=== PATIENT | male | born 1985 | race African-American/Black ===

== ENCOUNTER 2018-04-17 19:16 | Inpatient (IN) | payer BC, OTHER ==
[2018-04-17] MEDS ORDERED: SODIUM CHLORIDE 0.9% 2,000 ML IV STA (19:40)
[2018-04-17] MEDS ORDERED: FAMOTIDINE 20 MG/2 ML VIAL IV STA (19:40)
--- NOTE | 2018-04-17 19:42 | ED ---
General Adult HPI - General Chief complaint: Dizziness Stated complaint: dehydration/low BP Time Seen by Provider: 04/17/18 19:36 Source: patient, RN notes reviewed, old records reviewed (From [facility]) Mode of arrival: ambulatory Limitations: no limitations - History of Present Illness Initial comments: Patient is a pleasant 32-year-old male presenting to the emergency department with concerns for dehydration. Patient states symptoms started approximately a day and a half ago. Patient has had nausea with multiple episodes of vomiting. Patient has also had some episodes of diarrhea however not as much. No abdominal pain. Patient did go to urgent care and received an injection of Zofran. Nausea has improved. Patient was told his blood pressure was low and advised to come to the emergency department. Patient does also have some associated lightheadedness, more so with upright position. - Related Data Home Medications Medication Instructions Recorded Confirmed Beclomethasone Dipropionate [Qvar 1 puff INHALATION RT-BID PRN 04/17/18 04/17/18 80 mcg] Dulaglutide [Trulicity] 0.75 mg SQ SALAZAR 04/17/18 04/17/18 Lisinopril-Hctz 20-25 mg 1 tab PO DAILY 04/17/18 04/17/18 [Zestoretic 20-25] Simvastatin [Zocor] 20 mg PO HS 04/17/18 04/17/18 metFORMIN HCL 1,000 mg PO BID 04/17/18 04/17/18 sitaGLIPtin [Januvia] 100 mg PO DAILY 04/17/18 04/17/18 Allergies Allergy/AdvReac Type Severity Reaction Status Date / Time No Known Allergies Allergy Verified 04/17/18 19:55 Review of Systems ROS Statement: Those systems with pertinent positive or pertinent negative responses have been documented in the HPI. ROS Other: All systems not noted in ROS Statement are negative. Constitutional: Denies: fever Eyes: Denies: eye pain ENT: Denies: ear pain Respiratory: Denies: cough Cardiovascular: Denies: chest pain Endocrine: Denies: fatigue Gastrointestinal: Reports: nausea, vomiting, diarrhea. Denies: abdominal pain Genitourinary: Denies: dysuria Musculoskeletal: Denies: back pain Skin: Denies: rash Neurological: Denies: weakness, confusion Past Medical History Past Medical History: Asthma, Diabetes Mellitus, Hypertension History of Any Multi-Drug Resistant Organisms: None Reported Past Surgical History: No Surgical Hx Reported Past Psychological History: No Psychological Hx Reported Smoking Status: Never smoker Past Alcohol Use History: Occasional Past Drug Use History: None Reported General Exam Limitations: no limitations General appearance: alert, in no apparent distress Head exam: Present: atraumatic Eye exam: Present: normal appearance, PERRL ENT exam: Present: normal oropharynx Neck exam: Present: normal inspection Respiratory exam: Present: normal lung sounds bilaterally Cardiovascular Exam: Present: regular rate, normal rhythm GI/Abdominal exam: Present: soft. Absent: tenderness Extremities exam: Present: normal inspection. Absent: pedal edema, calf tenderness Neurological exam: Present: alert. Absent: motor sensory deficit Psychiatric exam: Present: normal affect, normal mood Skin exam: Present: normal color Course Vital Signs 04/17/18 04/17/18 19:31 20:32 Temperature 97.4 F L Pulse Rate 84 80 Respiratory 18 18 Rate Blood Pressure 74/46 105/54 O2 Sat by Pulse 100 100 Oximetry EKG Findings - EKG Comments: EKG Findings:: Normal sinus rhythm 81. RI 148. QRS 100. QT 332. QTC 385. Right axis. Normal QRS. No acute ST change. Medical Decision Making - Medical Decision Making Patient reevaluated and resting comfortably in bed. Blood pressure has increased to 105 systolic. Patient updated on results and plan and concerns. Case was discussed in detail with Dr. saab, who will admit for Dr. Zamora. He does request ICU admission. Case also discussed with Dr. Man, who will consult. He does request Cagle catheter. Second IV line will be placed. Additional IV fluid bolus has been provided along with bicarb and calcium. - Lab Data Result diagrams: 04/17/18 19:50 04/17/18 19:50 Lab Results 04/17/18 04/17/18 Range/Units 19:50 19:50 WBC 12.4 H (3.8-10.6) k/uL RBC 5.00 (4.30-5.90) m/uL Hgb 13.2 (13.0-17.5) gm/dL Hct 43.3 (39.0-53.0) % MCV 86.4 (80.0-100.0) fL MCH 26.3 (25.0-35.0) pg MCHC 30.4 L (31.0-37.0) g/dL RDW 13.7 (11.5-15.5) % Plt Count 293 (150-450) k/uL Neutrophils % 72 % Lymphocytes % 17 % Monocytes % 7 % Eosinophils % 2 % Basophils % 0 % Neutrophils # 8.9 H (1.3-7.7) k/uL Lymphocytes # 2.1 (1.0-4.8) k/uL Monocytes # 0.8 (0-1.0) k/uL Eosinophils # 0.3 (0-0.7) k/uL Basophils # 0.0 (0-0.2) k/uL Sodium 138 (137-145) mmol/L Potassium 7.2 H* (3.5-5.1) mmol/L Chloride 103 (98-107) mmol/L Carbon Dioxide 19 L (22-30) mmol/L Anion Gap 16 mmol/L BUN 88 H* (9-20) mg/dL Creatinine 12.40 H* (0.66-1.25) mg/dL Est GFR (CKD-EPI)AfAm 5 (>60 ml/min/1.73 sqM) Est GFR (CKD-EPI)NonAf 5 (>60 ml/min/1.73 sqM) Glucose 117 H (74-99) mg/dL Calcium 9.8 (8.4-10.2) mg/dL Total Bilirubin 0.6 (0.2-1.3) mg/dL AST 41 (17-59) U/L ALT 25 (21-72) U/L Alkaline Phosphatase 80 (38-126) U/L Total Protein 8.8 H (6.3-8.2) g/dL Albumin 5.0 (3.5-5.0) g/dL Amylase 227 H (30-110) U/L Lipase 228 (23-300) U/L - Radiology Data Interpreted by me: Abdominal x-ray shows no acute abnormality. Chest x-ray showing no acute abnormality. Radiologist interpretation still pending. Critical Care Time Critical Care Time: Yes Total Critical Care Time: 33 Disposition Clinical Impression: Acute renal failure (ARF), Hyperkalemia Disposition: ADMITTED IP TO THIS [facility] Condition: Serious Is patient prescribed a controlled substance at d/c from ED?: No Referrals: Marcial Zamora DO [Primary Care Provider] - 1-2 days Decision Time: 21:03
[2018-04-17 20:02] LABS: Basophils % (A) 0 %; Eosinophils # (A) 0.3 k/uL (0-0.7); Eosinophils % (A) 2 %; HCT 43.3 % (39.0-53.0); HGB 13.2 gm/dL (13.0-17.5); Lymphocytes # (A) 2.1 k/uL (1.0-4.8); Lymphocytes % (A) 17 %; MCH 26.3 pg (25.0-35.0); MCHC 30.4 g/dL (31.0-37.0); MCV 86.4 fL (80.0-100.0); Mean Platelet Volume 7.4; Monocytes # (A) 0.8 k/uL (0-1.0); Monocytes % (A) 7 %; Neutrophils # (A) 8.9 k/uL (1.3-7.7); Neutrophils % (A) 72 %; Platelet Count 293 k/uL (150-450); RDW 13.7 % (11.5-15.5); WBC 12.4 k/uL (3.8-10.6)
[2018-04-17 20:15] LABS: Calcium 9.8 mg/dL (8.4-10.2); Total Bilirubin 0.6 mg/dL (0.2-1.3); Total Protein 8.8 g/dL (6.3-8.2)
[2018-04-17 20:21] LABS: Potassium 7.2 mmol/L (3.5-5.1)
[2018-04-17] MEDS ORDERED: CALCIUM CHLORIDE 1,000 MG in SODIUM CHLORIDE 0.9% 100 ML IVPB STA (20:27)
[2018-04-17] MEDS ORDERED: SODIUM BICARB 8.4% 50 ML SYR (1 MEQ/ML) IV ONE (20:27)
[2018-04-17] MEDS ORDERED: SODIUM CHLORIDE 0.9% 1,000 ML IV STA (20:47)
[2018-04-17] MEDS ORDERED: NALOXONE 0.4 MG/ML 1 ML VIAL IV PRN (21:04)
[2018-04-17] MEDS: SODIUM CHLORIDE 0.9% 1,000 ML IV SCH (21:20)
--- NOTE | 2018-04-17 21:32 | XR ---
EXAMINATION TYPE: XR KUB 2 views DATE OF EXAM: 04/17/2018 COMPARISON: NONE HISTORY: Nausea and vomiting and syncope with pain TECHNIQUE: 2 upright views FINDINGS: The visualized lower lungs and pleural spaces are negative. No pneumoperitoneum or pneumatosis. Bowel gas pattern is normal. No acute skeletal or soft tissue findings. IMPRESSION: NEGATIVE EXAMINATION.
--- NOTE | 2018-04-17 21:33 | XR ---
EXAMINATION: XR chest 2V DATE AND TIME: 04/17/2018 8:19 PM ORDERING PROVIDER: John White DO CLINICAL INDICATION: pain TECHNIQUE: PA and lateral COMPARISON: None. DESCRIPTION: The lungs are clear. The pleural spaces are negative. The cardiac silhouette is not enlarged. The mediastinal and pleural silhouettes are unremarkable. The skeletal structures are intact without focal findings. The soft tissues are unremarkable. IMPRESSION: NO ACUTE PROCESS.
[2018-04-17] MEDS ORDERED: ONDANSETRON 4 MG/2 ML VIAL IVP PRN (21:34)
[2018-04-17 22:38] LABS: Glucose,Whole Blood 71 mg/dL (75-99)
[2018-04-17 23:17] LABS: Calcium 8.9 mg/dL (8.4-10.2)
[2018-04-17 23:22] LABS: Potassium 6.6 mmol/L (3.5-5.1)
[2018-04-17 23:27] VITALS: BMI 30.2
[2018-04-17 23:46] LABS: Glucose,Whole Blood 52 mg/dL (75-99)
[2018-04-17] MEDS ORDERED: CALCIUM CHLORIDE 100 MG/ML 10 ML SYRINGE IVP STA (23:57)
[2018-04-17] MEDS ORDERED: INSULIN REGULAR 100 UNIT/ML VIAL IV ONE (23:57)
[2018-04-17] MEDS ORDERED: DEXTROSE 50%-WATER 50 ML SYRINGE IVP STA (23:57)
[2018-04-18 00:25] LABS: Glucose,Whole Blood 60 mg/dL (75-99)
[2018-04-18 00:55] LABS: Glucose,Whole Blood 134 mg/dL (75-99)
[2018-04-18 01:34] LABS: Glucose,Whole Blood 130 mg/dL (75-99)
[2018-04-18] MEDS ORDERED: SODIUM CHLORIDE 0.9% 500 ML IV ONE (02:13)
[2018-04-18 03:26] LABS: Basophils % (A) 0 %; Eosinophils # (A) 0.2 k/uL (0-0.7); Eosinophils % (A) 2 %; HCT 30.7 % (39.0-53.0); Hypochromasia Slight; Lymphocytes # (A) 1.8 k/uL (1.0-4.8); Lymphocytes % (A) 19 %; MCH 26.9 pg (25.0-35.0); MCHC 30.8 g/dL (31.0-37.0); MCV 87.5 fL (80.0-100.0); Mean Platelet Volume 7.9; Monocytes # (A) 0.9 k/uL (0-1.0); Monocytes % (A) 9 %; Neutrophils # (A) 6.4 k/uL (1.3-7.7); Neutrophils % (A) 67 %; Platelet Count 208 k/uL (150-450); RBC 3.51 m/uL (4.30-5.90); RDW 13.7 % (11.5-15.5); WBC 9.5 k/uL (3.8-10.6)
[2018-04-18 03:37] LABS: HGB 9.5 gm/dL (13.0-17.5)
[2018-04-18 03:54] LABS: Albumin 3.1 g/dL (3.5-5.0); Calcium 9.5 mg/dL (8.4-10.2); Magnesium 2.3 mg/dL (1.6-2.3); Phosphorus 5.3 mg/dL (2.5-4.5); Potassium 5.4 mmol/L (3.5-5.1); Total Bilirubin 0.2 mg/dL (0.2-1.3); Total Protein 5.5 g/dL (6.3-8.2)
[2018-04-18 04:47] LABS: Glucose,Whole Blood 102 mg/dL (75-99)
[2018-04-18] MEDS: SODIUM CHLORIDE 0.9% 1,000 ML IV SCH ×5 (06:05→22:57)
[2018-04-18 06:34] LABS: Glucose,Whole Blood 93 mg/dL (75-99)
--- NOTE | 2018-04-18 09:56 | P.CNPUL ---
<Bisi Bedolla M - Last Filed: 04/18/18 09:55> History of Present Illness Consult date: 04/18/18 Requesting physician: Teodoro Vega Reason for consult: other Chief complaint: Acute kidney injury, hyperkalemia, hypotension, History of present illness: Mr. Bullock is a 32-year-old -[place] male patient of Dr. Zamora, who presented to the emergency department on 04/17/2018 at 1940 with complaints of lightheadedness, vomiting, diarrhea, weakness, fatigue. Patient went to the [place] with some friends on Saturday04/13/2018, and he had several alcoholic drinks, but denies being overtly intoxicated. Day on Saturday on 2017 patient felt lightheaded, and he saw bright lights. She did a lot of walking that day in the hot weather, and was perspiring quite a bit. He noticed his urine output was diminished. 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 By that time she was feeling worse, more fatigued, lightheaded, and started throwing up violently, in addition to 2 or 3 episodes of watery diarrhea. One other person in the group had the stomach upset, but no nausea vomiting or diarrhea. Patient went to the urgent care clinic, and was given some Zofran, and subsequently directed to the emergency department for further evaluation and treatment. Medical history is positive for diabetes mellitus type 2, patient was diagnosed at age 15, and his current medications for diabetes include Januvia, metformin and Trulicity. Other history includes asthma, patient is on Proair, usually prior to exercise, history of hypertension on Zestoretic. Lab work in the emergency department revealed WBC of 12.4, hemoglobin of 13.2, potassium was 6.6, BUN was 85, creatinine was 12.4, CO2 17, chloride was 110, amylase was 227, and lipase was 228. Negative chest x-ray, abdominal x-ray was negative. EKG showed normal sinus rhythm. Patient was hypotensive with a blood pressure 74/46, he was given a total of 3,5 L IV fluid boluses of 0.9 normal saline, his hyperkalemia and metabolic acidosis was treated with 1 amp of sodium bicarb, regular insulin, 50% dextrose, and calcium chloride, and on today's labs his potassium is 5.4, chloride is 111, CO2 is 15, BUN 79, and creatinine is 11.1. Nephrology been consulted, patient's blood pressure has improved, currently at 101/46, patient has been afebrile, room air pulse ox is 97%. No further episodes of vomiting, patient is actually tolerating a consistent carb diet, no further diarrhea, he is awake alert, and his mentation is appropriate. Denies any abdominal pain, lung sounds are clear, denies any distress. Review of Systems All systems: negative Constitutional: Denies chills, Denies fever Eyes: denies blurred vision, denies pain Ears, nose, mouth and throat: Denies headache, Denies sore throat Cardiovascular: Denies chest pain, Denies shortness of breath Respiratory: Denies cough Gastrointestinal: Reports nausea, Reports vomiting, Denies abdominal pain, Denies diarrhea Musculoskeletal: Denies myalgias Integumentary: Denies pruritus, Denies rash Neurological: Reports weakness, Denies numbness Psychiatric: Denies anxiety, Denies depression Endocrine: Denies fatigue, Denies weight change Past Medical History Past Medical History: Asthma, Diabetes Mellitus, Hypertension History of Any Multi-Drug Resistant Organisms: None Reported Past Surgical History: No Surgical Hx Reported Additional Past Surgical History / Comment(s): Cyst removed from neck when was child. Past Psychological History: No Psychological Hx Reported Smoking Status: Never smoker Past Alcohol Use History: Occasional Past Drug Use History: None Reported - Past Family History Father Family Medical History: Diabetes Mellitus, Dialysis, Renal Disease Mother Family Medical History: Diabetes Mellitus, Dialysis, Renal Disease Medications and Allergies Home Medications Medication Instructions Recorded Confirmed Type Beclomethasone Dipropionate [Qvar 1 puff INHALATION RT-BID PRN 04/17/18 History 80 mcg] Dulaglutide [Trulicity] 0.75 mg SQ SALAZAR 04/17/18 04/17/18 History Lisinopril-Hctz 20-25 mg 1 tab PO DAILY 04/17/18 04/17/18 History [Zestoretic 20-25] Simvastatin [Zocor] 20 mg PO HS 04/17/18 04/17/18 History metFORMIN HCL 1,000 mg PO BID 04/17/18 04/17/18 History sitaGLIPtin [Januvia] 100 mg PO DAILY 04/17/18 04/17/18 History Allergies Allergy/AdvReac Type Severity Reaction Status Date / Time No Known Allergies Allergy Verified 04/17/18 19:55 Physical Exam Vitals: Vital Signs Temp Pulse Resp BP Pulse Ox 04/18/18 08:00 98.2 F 77 19 101/46 97 04/18/18 07:00 86 14 92/38 98 04/18/18 06:00 89 18 92/38 98 04/18/18 05:00 95 34 H 104/51 100 04/18/18 04:00 98.4 F 85 19 85/44 98 04/18/18 03:30 88 19 84/45 99 04/18/18 03:00 90 19 81/43 99 04/18/18 02:30 94 19 82/41 99 04/18/18 02:00 97 20 88/42 100 04/18/18 01:30 97 20 103/46 99 04/18/18 01:00 98 22 95/48 96 04/18/18 00:30 107 H 26 H 115/65 94 L 04/18/18 00:00 98.1 F 99 28 H 107/54 99 04/17/18 23:30 98 25 H 104/51 99 04/17/18 23:00 93 20 124/49 100 04/17/18 22:40 98.0 F 71 15 124/49 100 04/17/18 22:17 97.9 F 04/17/18 21:47 70 18 95/45 100 04/17/18 21:17 63 18 109/46 100 04/17/18 20:50 66 18 112/53 100 04/17/18 20:32 80 18 105/54 100 04/17/18 19:31 97.4 F L 84 18 74/46 100 Intake and Output 04/17/18 04/18/18 04/18/18 22:59 06:59 14:59 Intake Total 1600 400 Output Total 150 150 Balance 1450 250 Intake: IV 1600 400 Sodium Chloride 0.9% 1, 1600 400 000 ml @ 200 mls/hr IV . Q5H [facility] Rx#:[id number] Output: Urine 150 150 Other: # Voids 1 # Bowel Movements 1 Weight 85.1 kg 90.8 kg GENERAL EXAM: Alert, pleasant, 32-year-old -[place] male comfortable in no apparent distress. HEAD: Normocephalic/atraumatic. EYES: Normal reaction of pupils, equal size. Conjunctiva pink, sclera white. NOSE: Clear with pink turbinates. THROAT: No erythema or exudates. NECK: No masses, no JVD, no thyroid enlargement, no adenopathy. CHEST: No chest wall deformity. Symmetrical expansion. LUNGS: Equal air entry with no crackles, wheeze, rhonchi or dullness. CVS: Regular rate and rhythm, normal S1 and S2, no gallops, no murmurs, no rubs ABDOMEN: Soft, nontender. No hepatosplenomegaly, normal bowel sounds, no guarding or rigidity. EXTREMITIES: No clubbing, no edema, no cyanosis, 2+ pulses and upper and lower extremities. MUSCULOSKELETAL: Muscle strength and tone normal. SPINE: No scoliosis or deformity SKIN: No rashes CENTRAL NERVOUS SYSTEM: Alert and oriented -3. No focal deficits, tone is normal in all 4 extremities. PSYCHIATRIC: Alert and oriented -3. Appropriate affect. Intact judgment and insight. Results - Laboratory Findings CBC and BMP: 04/18/18 03:11 04/18/18 03:11 Abnormal lab findings: Abnormal Labs 04/17/18 04/17/18 04/17/18 19:50 19:50 22:36 WBC 12.4 H RBC Hgb Hct MCHC 30.4 L Neutrophils # 8.9 H Potassium 7.2 H* Chloride Carbon Dioxide 19 L BUN 88 H* Creatinine 12.40 H* Glucose 117 H POC Glucose (mg/dL) 71 L Phosphorus AST Total Protein 8.8 H Albumin Amylase 227 H 04/17/18 04/17/18 04/18/18 22:46 23:44 00:23 WBC RBC Hgb Hct MCHC Neutrophils # Potassium 6.6 H* Chloride 110 H Carbon Dioxide 17 L BUN 85 H* Creatinine 11.10 H* Glucose 70 L POC Glucose (mg/dL) 52 L 60 L Phosphorus AST Total Protein Albumin Amylase 04/18/18 04/18/18 04/18/18 00:53 01:32 03:11 WBC RBC 3.51 L Hgb 9.5 L D Hct 30.7 L MCHC 30.8 L Neutrophils # Potassium Chloride Carbon Dioxide BUN Creatinine Glucose POC Glucose (mg/dL) 134 H 130 H Phosphorus AST Total Protein Albumin Amylase 04/18/18 04/18/18 03:11 04:45 WBC RBC Hgb Hct MCHC Neutrophils # Potassium 5.4 H Chloride 111 H Carbon Dioxide 15 L BUN 79 H Creatinine 11.10 H* Glucose POC Glucose (mg/dL) 102 H Phosphorus 5.3 H AST 15 L Total Protein 5.5 L Albumin 3.1 L Amylase - Diagnostic Findings Chest x-ray: report reviewed, image reviewed Additional studies: X-ray of the abdomen, twelve-lead EKG reviewed Assessment and Plan Plan: Assessment: #1. Acute kidney injury, related to significant dehydration and hypovolemia. #2. Hyperkalemia, hyperchloremia, related to the above #3. Hypertension #4. Nausea, vomiting, diarrhea, excessive sweating in hot weather #5. Non-anion gap metabolic acidosis related to acute kidney injury #6. Mild leukocytosis, possibly reactive #7. Diabetes mellitus type II, he is on Januvia, metformin, and Trulicity insulin #8. Exercise-induced asthma, stable #9. Hypertension #10. Lifetime nonsmoker Plan: Patient has received aggressive fluid resuscitation, a total of 3,5 liters of crystalloids, currently his blood pressures have improved, he is alert and oriented 3, no confusion, no delirium. He is tolerating small amounts of food and keeping fluids down, no further vomiting or diarrhea. Nephrology is following. Still remains acidotic on today's labs, we'll continue with IV hydration with 0.9 normal saline at a rate of 200 ML per hour. Serum potassium has improved, and is down to 5.4, continue monitoring EKG pattern, continue monitoring hemodynamic status, urine output. His asthma is stable, with no sign of current exacerbation. I performed a history & physical examination of the patient and discussed their management with my nurse practitioner, Bisi Bedolla. I reviewed the nurse practitioner's note and agree with the documented findings and plan of care. Lung sounds are clear. The findings and the impression was discussed with the patient. I attest to the documentation by the nurse practitioner. <Priyanka Man - Last Filed: 04/18/18 13:52> Physical Exam Vitals: Vital Signs Temp Pulse Resp BP Pulse Ox 04/18/18 13:00 78 20 98/49 100 04/18/18 12:00 76 17 91/50 100 04/18/18 11:00 82 18 98/46 100 04/18/18 10:00 80 16 96/48 98 04/18/18 09:00 90 28 H 113/50 97 04/18/18 08:00 98.2 F 77 19 101/46 97 04/18/18 07:00 86 14 92/38 98 04/18/18 06:00 89 18 92/38 98 04/18/18 05:00 95 34 H 104/51 100 04/18/18 04:00 98.4 F 85 19 85/44 98 04/18/18 03:30 88 19 84/45 99 04/18/18 03:00 90 19 81/43 99 04/18/18 02:30 94 19 82/41 99 04/18/18 02:00 97 20 88/42 100 04/18/18 01:30 97 20 103/46 99 04/18/18 01:00 98 22 95/48 96 04/18/18 00:30 107 H 26 H 115/65 94 L 04/18/18 00:00 98.1 F 99 28 H 107/54 99 04/17/18 23:30 98 25 H 104/51 99 04/17/18 23:00 93 20 124/49 100 04/17/18 22:40 98.0 F 71 15 124/49 100 04/17/18 22:17 97.9 F 04/17/18 21:47 70 18 95/45 100 04/17/18 21:17 63 18 109/46 100 04/17/18 20:50 66 18 112/53 100 04/17/18 20:32 80 18 105/54 100 04/17/18 19:31 97.4 F L 84 18 74/46 100 Intake and Output 04/17/18 04/18/18 04/18/18 22:59 06:59 14:59 Intake Total 1600 1400 Output Total 150 820 Balance 1450 580 Intake: IV 1600 1400 Sodium Chloride 0.9% 1, 1600 1400 000 ml @ 200 mls/hr IV . Q5H [facility] Rx#:[id number] Output: Urine 150 820 Other: # Voids 1 # Bowel Movements 1 Weight 85.1 kg 90.8 kg 90.8 kg Results - Laboratory Findings CBC and BMP: 04/18/18 03:11 04/18/18 03:11 Abnormal lab findings: Abnormal Labs 07/12/18 07/12/18 07/12/18 19:50 19:50 22:36 WBC 12.4 H RBC Hgb Hct MCHC 30.4 L Neutrophils # 8.9 H Potassium 7.2 H* Chloride Carbon Dioxide 19 L BUN 88 H* Creatinine 12.40 H* Glucose 117 H POC Glucose (mg/dL) 71 L Phosphorus AST Total Protein 8.8 H Albumin Amylase 227 H Urine Protein Urine Blood Urine Bacteria Hyaline Casts Urine Mucus 04/17/18 04/17/18 04/18/18 22:46 23:44 00:23 WBC RBC Hgb Hct MCHC Neutrophils # Potassium 6.6 H* Chloride 110 H Carbon Dioxide 17 L BUN 85 H* Creatinine 11.10 H* Glucose 70 L POC Glucose (mg/dL) 52 L 60 L Phosphorus AST Total Protein Albumin Amylase Urine Protein Urine Blood Urine Bacteria Hyaline Casts Urine Mucus 04/18/18 04/18/18 04/18/18 00:53 01:32 03:11 WBC RBC 3.51 L Hgb 9.5 L D Hct 30.7 L MCHC 30.8 L Neutrophils # Potassium Chloride Carbon Dioxide BUN Creatinine Glucose POC Glucose (mg/dL) 134 H 130 H Phosphorus AST Total Protein Albumin Amylase Urine Protein Urine Blood Urine Bacteria Hyaline Casts Urine Mucus 04/18/18 04/18/18 04/18/18 03:11 04:45 11:05 WBC RBC Hgb Hct MCHC Neutrophils # Potassium 5.4 H Chloride 111 H Carbon Dioxide 15 L BUN 79 H Creatinine 11.10 H* Glucose POC Glucose (mg/dL) 102 H Phosphorus 5.3 H AST 15 L Total Protein 5.5 L Albumin 3.1 L Amylase Urine Protein 1+ H Urine Blood Moderate H Urine Bacteria Rare H Hyaline Casts 12 H Urine Mucus Rare H Assessment and Plan Plan: This is a joint evaluation that was done along with the nurse practitioner. We will order an ultrasound the kidneys. We'll order a urine analysis. Continue fluid resuscitation. Repeat electrolytes. We'll continue to follow.
[2018-04-18] MEDS: SODIUM BICARBONATE TAB 650 MG TAB PO SCH ×2 (10:55→21:40)
[2018-04-18 11:22] LABS: Appearance,Urine Clear (Clear); Bacteria,Urine Rare /hpf; Bilirubin,Urine Negative (Negative); Blood,Urine Moderate (Negative); Color,Urine Light Yellow; Glucose,Urine (UA) Negative (Negative); Hyaline Casts,Urine 12 /lpf (0-2); Ketones,Urine Negative (Negative); Leukocyte Esterase,Urine Negative (Negative); Mucus,Urine Rare /hpf; Nitrite,Urine Negative (Negative); PH, Urine 5.5 (5.0-8.0); Protein,Urine 1+ (Negative); RBC,Urine <1 /hpf (0-5); Specific Gravity,Urine 1.009 (1.001-1.035); Squamous Epithelial Cell,Urine 1 /hpf (0-4); Urobilinogen,Urine <2.0 mg/dL (<2.0); WBC,Urine 1 /hpf (0-5)
[2018-04-18 12:11] LABS: Glucose,Whole Blood 87 mg/dL (75-99)
[2018-04-18] MEDS: INSULIN ASPART 100 UNIT/ML 1 ML 10 ML VIAL SQ SCH ×3 (13:02→21:37)
--- NOTE | 2018-04-18 13:07 | US ---
EXAMINATION TYPE: US kidneys/renal and bladder DATE OF EXAM: 04/18/2018 COMPARISON: NONE CLINICAL HISTORY: acute renal failure. acute renal failure EXAM MEASUREMENTS: Right Kidney: 9.6 x 4.4 x 5.6 cm Left Kidney: 9.8 x 6.3 x 4.4 cm Technical limitations due to overlying bowel content Right Kidney: visualized portions show no evidence of hydronephrosis or mass Left Kidney: visualized portions show no evidence of hydronephrosis or mass Bladder: appears wnl Bilateral Jets seen: yes There is no evidence for hydronephrosis at this point in time. No nephrolithiasis is seen. No bud s are identified. The urinary bladder is anechoic. Bilateral ureteral jets are seen. IMPRESSION: No hydronephrosis or nephrolithiasis. No sonographic sequela of medical renal disease.
--- NOTE | 2018-04-18 13:16 | CONS ---
CONSULTATION REASON FOR CONSULT: Renal failure. HISTORY OF PRESENT ILLNESS: The patient is a 32-year-old male who was admitted to the hospital with complaints of weakness not feeling well. He stated he had been out and working outside. He felt he was dehydrated. He did have some diarrhea. He had some nausea and vomiting. Was not able to keep any food down. He denied use of any nonsteroidal anti-inflammatory agents that he had taken. Patient's creatinine on admission was 12 mg/dL. He states he did have labs done as outpatient for his routine physical maybe 2 months ago and was not notified of any issues with his kidneys. He currently has good urine output. Serum creatinine is at 11. The patient is maintained on IV fluids. His blood pressure was low when he came in with systolic about 92 to 98, but there is a documentation of a systolic of 74 mmHg on initial admission. No history of kidney stones. The patient was on SAI inhibitors prior to admission, which is now on hold. Overall, patient states he is feeling better. PAST MEDICAL HISTORY: Type 2 diabetes, hypertension, asthma. SOCIAL HISTORY: Negative for smoking, drug abuse or alcohol abuse. MEDICATIONS: Medications at home prior to admission included Qvar, Trulicity, Zocor, Zestoretic, Januvia, metformin. ALLERGIES: None. PHYSICAL EXAMINATION: On examination, patient is currently comfortable, awake, alert, oriented x3. He is not in any acute distress. Blood pressure was 96/48, heart rate 80 per minute. He is afebrile. EXAMINATION OF THE HEART: S1, S2. EXAMINATION OF THE LUNGS: Bilateral breath sounds are heard. Abdomen is soft, nontender. Examination of the lower extremities shows no evidence of edema. CHARGER TESTER exam is grossly intact. No asterixis are noted. LABS: Labs show sodium 138, potassium 5.4, chloride 111, CO2 15, BUN 79, serum creatinine 11.1, calcium of 9.5. UA shows 1+ protein, moderate blood, hyaline casts 12. ASSESSMENT: 1. Acute kidney injury, most likely acute tubular necrosis from hypotension, hypovolemia. The patient was on SAI inhibitors as well prior to admission. He is maintained on aggressive IV hydration. Serum creatinine is slightly improved. We will continue with IV fluids and check an ultrasound of the kidneys. We will also obtain previous labs done as outpatient to assess patient's baseline renal function. He did state that his parents were on dialysis about 10 years ago, but they were much older. 2. Severe intravascular volume depletion. Maintained on aggressive IV hydration. 3. Hyperkalemia associated with advanced renal failure with serum potassium at 7.2 on initial admission now at 5.4, status post IV treatment. 4. Metabolic acidosis. Will start oral sodium bicarb and we can add IV bicarb if his acidosis worsens. 5. Type 2 diabetes. 6. History of hypertension. Blood pressure currently on the lower side, off of all antihypertensive medications. PLAN: Aggressive IV hydration. Maintain patient on oral sodium bicarb. Switch IV fluids to IV bicarb if the acidosis is worse. We will check repeat labs later on this afternoon on. Thank you for this consultation. We will continue to follow the patient with you during his hospitalization. JERRY / ABIOLA: [id number] /
[2018-04-18 16:33] LABS: Calcium 8.9 mg/dL (8.4-10.2)
[2018-04-18] MEDS ORDERED: MAGNESIUM HYDROXIDE 2,400 MG/10 ML CUP PO PRN (16:35)
[2018-04-18] MEDS ORDERED: MELATONIN 3 MG TABLET PO PRN (16:35)
[2018-04-18] MEDS ORDERED: LACTULOSE 20 GM/30 ML CUP PO PRN (16:35)
[2018-04-18] MEDS ORDERED: LORazepam 0.5 MG TAB PO PRN (16:35)
[2018-04-18] MEDS ORDERED: CALCIUM CARBONATE 500 MG CHEWABLE PO PRN (16:35)
[2018-04-18] MEDS ORDERED: ACETAMINOPHEN TAB 325 MG TAB PO PRN (16:35)
[2018-04-18 16:38] LABS: Potassium 6.7 mmol/L (3.5-5.1)
[2018-04-18] MEDS: ENOXAPARIN 40 MG/0.4 ML SYRINGE SQ SCH (16:48)
[2018-04-18 17:22] LABS: Glucose,Whole Blood 76 mg/dL (75-99)
[2018-04-18] MEDS ORDERED: SODIUM BICARB 8.4% 50 ML SYR (1 MEQ/ML) IV ONE (17:28)
[2018-04-18] MEDS ORDERED: INSULIN REGULAR 100 UNIT/ML VIAL IV ONE ×2 (17:31→22:23)
--- NOTE | 2018-04-18 17:31 | HP ---
HISTORY AND PHYSICAL DATE OF ADMISSION: 04/17/2018 DATE OF SERVICE: 04/18/2018 PRESENTING COMPLAINT: Weak and tired, nausea, vomiting. HISTORY OF PRESENTING COMPLAINT: This is a very pleasant 32-year-old patient of Dr. Zamora. Chronic stable medical conditions include asthma, diabetes, possible hypertension. For 2 days patient was having increasing nausea, vomiting, diarrhea in large amounts. No abdominal pain. No fever or chills. He felt extremely weak, tired, rundown, dizzy, lightheaded, and presented to the ER. The patient was found to be in severe renal failure with a BUN of 88, creatinine of 12.4, and hyperkalemic at 7.2. Sugars did dip down to 70s and 52. Patient was admitted to the ICU. The patient was given insulin, bicarb, IV fluid boluses and admitted to the intensive care unit. Patient's vomiting has somewhat settled down. Still having some loose stools, but really tired and rundown. REVIEW OF SYSTEMS: CONSTITUTIONAL: Weak, tired, rundown. HEENT: None. RESPIRATORY: Mild wheezing. CARDIOVASCULAR: None. GASTROINTESTINAL: As above. GENITOURINARY: None. MUSCULOSKELETAL: None. DERMATOLOGICAL: None. HEMATOLOGICAL: None. LYMPHATICS: None. PSYCHIATRY: None. NEUROLOGICAL: None. PAST MEDICAL HISTORY: 1. Asthma. 2. Diabetes. 3. Hypertension. PAST SURGICAL HISTORY: Cyst removed from the neck. SOCIAL HISTORY: Does not smoke. Drinks alcohol occasionally. Lives by himself. Works at a long term. FAMILY HISTORY: Diabetes, kidney disease. HOME MEDICATIONS: 1. Januvia 100 mg a day. 2. Zocor 20 mg at bedtime. 3. Trulicity 0.75 mg subcutaneously on Sundays. 4. Qvar 80 one puff b.i.d. 5. Metformin 1000 mg p.o. b.i.d. 6. Zestoretic 20/25 one tablet p.o. daily. ALLERGIES: NONE. PHYSICAL EXAMINATION: Temperature 97.4, pulse 84, respiration 18, blood pressure 74/46, pulse ox 100% on room air. GENERAL APPEARANCE: Average build. Lying in bed, tired-appearing. Skin turgor is low. EYES: Pupils equal. Conjunctivae normal. HEENT: External appearance of nose and ears normal. Oral cavity dry mucous membrane. NECK: JVD not raised. Mass not palpable. RESPIRATORY: Effort normal. LUNGS: Decreased breath sounds. Mild wheezing. CARDIOVASCULAR: First and second sounds normal. No edema. ABDOMEN: Soft, non-tender. Liver and spleen not palpable. LYMPHATIC: No lymph node palpable in neck or axillae. PSYCHIATRY: Alert and oriented x3. Mood and affect normal. INVESTIGATIONS: White count 12.4, hemoglobin 13.2, potassium 7.2, bicarb down to 17, BUN 88, creatinine 12.4. Blood glucose did go to 70 and Accu-Chek was 52. Chest x-ray film interpreted by me is normal. EKG tracing interpreted by me showing normal sinus rhythm and peaked T-waves. Abdominal ultrasound: Kidneys are unremarkable. ASSESSMENT: 1. Acute severe renal failure, likely prerenal, from nausea, vomiting, diarrhea. 2. Diabetes mellitus, type 2, chronically on oral hypoglycemic. 3. Mild intermittent asthma. 4. Acute metabolic acidosis from renal failure. 5. Severe hyperkalemia. 6. Hypoglycemia from poor oral intake. PLAN: The patient has been put on IV fluids, sodium bicarb, put in the ICU. Accu-Cheks are being closely followed. Nephrology was consulted. Renal ultrasound was unremarkable. Care was discussed with the patient. Will hold off any antibiotics, as this could be viral self-limiting as patient has no fever, no abdominal pain. MMODL / IJN: [id number] /
[2018-04-18] MEDS ORDERED: CALCIUM CHLORIDE 100 MG/ML 10 ML SYRINGE IVP STA (17:32)
[2018-04-18] MEDS ORDERED: DEXTROSE 50%-WATER 50 ML SYRINGE IVP STA ×2 (17:34→22:23)
[2018-04-18 18:54] LABS: Hemoglobin A1C 5.8 % (4.0-6.0)
[2018-04-18 20:41] LABS: Urine Alcohol Negative (Negative); Urine Barbiturate Negative (Negative); Urine Cocaine Negative (Negative); Urine Methadone Negative (Negative); Urine Opiates Negative (Negative); Urine Phencyclidine Negative (Negative)
[2018-04-18 20:48] LABS: Glucose,Whole Blood 96 mg/dL (75-99)
[2018-04-18 21:46] LABS: Calcium 9.9 mg/dL (8.4-10.2); Potassium 6.1 mmol/L (3.5-5.1)
[2018-04-18] MEDS ORDERED: SODIUM BICARB 8.4% 50 ML SYR (1 MEQ/ML) IV STA (22:23)
[2018-04-19 00:18] LABS: Glucose,Whole Blood 68 mg/dL (75-99)
[2018-04-19 00:30] LABS: Glucose,Whole Blood 81 mg/dL (75-99)
[2018-04-19] MEDS: SODIUM CHLORIDE 0.9% 1,000 ML IV SCH ×4 (03:00→21:20)
[2018-04-19 03:01] LABS: Glucose,Whole Blood 94 mg/dL (75-99)
[2018-04-19 06:02] LABS: Basophils % (A) 1 %; Eosinophils # (A) 0.3 k/uL (0-0.7); Eosinophils % (A) 4 %; HCT 28.9 % (39.0-53.0); HGB 8.8 gm/dL (13.0-17.5); Hypochromasia Moderate; Lymphocytes # (A) 2.6 k/uL (1.0-4.8); Lymphocytes % (A) 42 %; MCH 27.1 pg (25.0-35.0); MCHC 30.4 g/dL (31.0-37.0); MCV 89.2 fL (80.0-100.0); Mean Platelet Volume 7.6; Monocytes # (A) 0.4 k/uL (0-1.0); Monocytes % (A) 7 %; Neutrophils # (A) 2.7 k/uL (1.3-7.7); Neutrophils % (A) 43 %; Platelet Count 203 k/uL (150-450); RBC 3.24 m/uL (4.30-5.90); RDW 13.6 % (11.5-15.5); WBC 6.3 k/uL (3.8-10.6)
[2018-04-19 06:28] LABS: Calcium 9.1 mg/dL (8.4-10.2); Magnesium 1.8 mg/dL (1.6-2.3); Phosphorus 3.9 mg/dL (2.5-4.5)
[2018-04-19] MEDS ORDERED: DEXTROSE 50%-WATER 50 ML SYRINGE IVP STA (07:04)
[2018-04-19] MEDS ORDERED: INSULIN REGULAR 100 UNIT/ML VIAL IV ONE (07:15)
[2018-04-19] MEDS ORDERED: SODIUM BICARB 8.4% 50 ML SYR (1 MEQ/ML) IV ONE (07:15)
[2018-04-19 07:27] LABS: Glucose,Whole Blood 86 mg/dL (75-99)
[2018-04-19] MEDS: SODIUM BICARB 8.4% 50 ML SYR (1 MEQ/ML) IV ONE (07:34)
[2018-04-19] MEDS: INSULIN ASPART 100 UNIT/ML 1 ML 10 ML VIAL SQ SCH ×4 (07:35→21:05)
[2018-04-19] MEDS ORDERED: MAGNESIUM SULFATE-D5W PMX 1 GM in DEXTROSE/WATER 1 100ML.BAG IVPB ONE (08:00)
[2018-04-19] MEDS: ENOXAPARIN 40 MG/0.4 ML SYRINGE SQ SCH (08:07)
[2018-04-19] MEDS: SODIUM BICARBONATE TAB 650 MG TAB PO SCH ×2 (08:07→21:50)
[2018-04-19 08:45] LABS: Glucose,Whole Blood 224 mg/dL (75-99)
--- NOTE | 2018-04-19 10:57 | P.PN ---
Subjective Patient is seen in follow-up for acute kidney injury. Creatinine was greater than 12 on admission and is down to 4.1 today. Potassium remains elevated. He is nonoliguric. Maintained on normal saline at 200 mL an hour. Oral intake is good. No nausea vomiting or diarrhea. Vital signs are stable. General: The patient appeared well nourished and normally developed. HEENT: Head exam is unremarkable. Neck is without jugular venous distension. LUNGS: Lungs are clear to auscultation and percussion. Breath sounds decreased. HEART: Rate and Rhythm are regular. First and second heart sounds normal. No murmurs, rubs or gallops. ABDOMEN: Abdominal exam reveals normal bowel sounds. Non-tender and non- distended. No evidence of peritonitis. EXTREMITITES: No clubbing, cyanosis, or edema. Objective - Vital Signs Vital signs: Vital Signs Temp 98.5 F 04/19/18 08:00 Pulse 79 04/19/18 10:00 Resp 16 04/19/18 10:00 BP 103/63 04/19/18 10:00 Pulse Ox 99 04/19/18 10:00 Intake & Output 04/18/18 04/19/18 04/19/18 18:59 06:59 18:59 Intake Total 2500 2400 900 Output Total 1620 3275 500 Balance 880 -875 400 Weight 90.8 kg 96.2 kg Intake: IV 2500 2400 900 Calcium Chloride 1,000 mg 100 In Sodium Chloride 0.9% 100 ml @ 100 mls/hr IVPB ONCE STA Rx#:[id number] Magnesium Sulfate-D5w Pmx 100 1 gm In Dextrose/Water 1 100ml.bag @ 100 mls/hr IVPB ONCE ONE Rx#: [id number] Sodium Chloride 0.9% 1, 2400 2400 800 000 ml @ 200 mls/hr IV . Q5H [facility] Rx#:[id number] Output: Urine 1620 3275 500 Other: Voiding Method Urinal Urinal Urinal # Voids 1 - Labs CBC & Chem 7: 04/19/18 05:13 04/19/18 05:13 Labs: Abnormal Lab Results - Last 24 Hours (Table) 04/18/18 04/18/18 04/18/18 Range/Units 11:05 16:05 21:06 RBC (4.30-5.90) m/uL Hgb (13.0-17.5) gm/dL Hct (39.0-53.0) % MCHC (31.0-37.0) g/dL Potassium 6.7 H* 6.1 H (3.5-5.1) mmol/L Chloride 116 H 117 H (98-107) mmol/L Carbon Dioxide 19 L (22-30) mmol/L BUN 70 H 62 H (9-20) mg/dL Creatinine 7.80 H* 6.30 H* (0.66-1.25) mg/dL POC Glucose (mg/dL) (75-99) mg/dL Urine Protein 1+ H (Negative) Urine Blood Moderate H (Negative) Urine Bacteria Rare H (None) /hpf Hyaline Casts 12 H (0-2) /lpf Urine Mucus Rare H (None) /hpf 04/19/18 04/19/18 04/19/18 Range/Units 00:16 05:13 05:13 RBC 3.24 L (4.30-5.90) m/uL Hgb 8.8 L (13.0-17.5) gm/dL Hct 28.9 L (39.0-53.0) % MCHC 30.4 L (31.0-37.0) g/dL Potassium 6.0 H (3.5-5.1) mmol/L Chloride 115 H (98-107) mmol/L Carbon Dioxide 20 L (22-30) mmol/L BUN 51 H (9-20) mg/dL Creatinine 4.10 H (0.66-1.25) mg/dL POC Glucose (mg/dL) 68 L (75-99) mg/dL Urine Protein (Negative) Urine Blood (Negative) Urine Bacteria (None) /hpf Hyaline Casts (0-2) /lpf Urine Mucus (None) /hpf 04/19/18 Range/Units 08:43 RBC (4.30-5.90) m/uL Hgb (13.0-17.5) gm/dL Hct (39.0-53.0) % MCHC (31.0-37.0) g/dL Potassium (3.5-5.1) mmol/L Chloride (98-107) mmol/L Carbon Dioxide (22-30) mmol/L BUN (9-20) mg/dL Creatinine (0.66-1.25) mg/dL POC Glucose (mg/dL) 224 H (75-99) mg/dL Urine Protein (Negative) Urine Blood (Negative) Urine Bacteria (None) /hpf Hyaline Casts (0-2) /lpf Urine Mucus (None) /hpf Microbiology - Last 24 Hours (Table) 04/18/18 11:05 Urine Culture - Preliminary Urine,Clean Catch Assessment and Plan Plan: Assessment: 1. Nonoliguric acute kidney injury mostly prerenal improving with IV hydration. Creatinine was greater than 12 on admission and is down to 4.1 today. 2. Hyperkalemia secondary to acute kidney injury and metabolic acidosis. 3. Anemia. Rule out iron deficiency. 4. Metabolic acidosis secondary to IV fluids and acute kidney injury. 5. Diabetes mellitus. Plan: Decrease rate of normal saline to 125 mL an hour. Maintain low potassium diet. Recheck potassium level in one hour. Maintain oral sodium bicarbonate. Check iron studies.
[2018-04-19 12:02] LABS: Calcium 9.3 mg/dL (8.4-10.2); Potassium 5.4 mmol/L (3.5-5.1)
[2018-04-19 12:22] LABS: Glucose,Whole Blood 55 mg/dL (75-99)
[2018-04-19 12:22] LABS: Glucose,Whole Blood 61 mg/dL (75-99)
[2018-04-19 12:49] LABS: Glucose,Whole Blood 87 mg/dL (75-99)
--- NOTE | 2018-04-19 14:43 | P.PN ---
Subjective Progress Note Date: 04/19/18 Mr. Bullock is a 32-year-old -Green[place] male patient of Dr. Zamora, who presented to the emergency department on 04/17/2018 at 1940 with complaints of lightheadedness, vomiting, diarrhea, weakness, fatigue. Patient went to the [place] with some friends on Saturday04/13/2018, and he had several alcoholic drinks, but denies being overtly intoxicated. Day on Saturday on 2017 patient felt lightheaded, and he saw bright lights. She did a lot of walking that day in the hot weather, and was perspiring quite a bit. He noticed his urine output was diminished. 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 By that time she was feeling worse, more fatigued, lightheaded, and started throwing up violently, in addition to 2 or 3 episodes of watery diarrhea. One other person in the group had the stomach upset, but no nausea vomiting or diarrhea. Patient went to the urgent care clinic, and was given some Zofran, and subsequently directed to the emergency department for further evaluation and treatment. Medical history is positive for diabetes mellitus type 2, patient was diagnosed at age 15, and his current medications for diabetes include Januvia, metformin and Trulicity. Other history includes asthma, patient is on Proair, usually prior to exercise, history of hypertension on Zestoretic. Lab work in the emergency department revealed WBC of 12.4, hemoglobin of 13.2, potassium was 6.6, BUN was 85, creatinine was 12.4, CO2 17, chloride was 110, amylase was 227, and lipase was 228. Negative chest x-ray, abdominal x-ray was negative. EKG showed normal sinus rhythm. Patient was hypotensive with a blood pressure 74/46, he was given a total of 3,5 L IV fluid boluses of 0.9 normal saline, his hyperkalemia and metabolic acidosis was treated with 1 amp of sodium bicarb, regular insulin, 50% dextrose, and calcium chloride, and on today's labs his potassium is 5.4, chloride is 111, CO2 is 15, BUN 79, and creatinine is 11.1. Nephrology been consulted, patient's blood pressure has improved, currently at 101/46, patient has been afebrile, room air pulse ox is 97%. No further episodes of vomiting, patient is actually tolerating a consistent carb diet, no further diarrhea, he is awake alert, and his mentation is appropriate. Denies any abdominal pain, lung sounds are clear, denies any distress. On today's evaluation of 04/19/2018 the patient is looking well and he has no specific complaints. His renal function continues to improve. Ultrasound the kidneys showed no evidence of any hydronephrosis. UA was negative also other than some casts. The patient's creatinine is improving and creatinine is down to 3.2. Potassium level is down to 5.4 did not that overnight the patient had some issues with hyperkalemia and he was given the potassium cocktail to which she responded. He is tolerating his diet. No nausea. No vomiting. No abdominal pain. Is producing adequate amount of urine output. His net fluid balance is +1.4 L 4 yesterday. Otherwise is urinating adequately for now. Nephrology is on the case. The patient on Lovenox for DVT prophylaxis. He is also on normal saline at the rate of 125 mL an hour. Objective - Vital Signs Vital signs: Vital Signs Temp 98.2 F 04/19/18 12:00 Pulse 70 04/19/18 14:00 Resp 10 L 04/19/18 14:00 BP 132/73 04/19/18 14:00 Pulse Ox 98 04/19/18 14:00 Intake & Output 04/18/18 04/19/18 04/19/18 18:59 06:59 18:59 Intake Total 2500 2400 1400 Output Total 1620 3275 1750 Balance 880 -875 -350 Weight 90.8 kg 96.2 kg Intake: IV 2500 2400 1400 Calcium Chloride 1,000 mg 100 In Sodium Chloride 0.9% 100 ml @ 100 mls/hr IVPB ONCE STA Rx#:[id number] Magnesium Sulfate-D5w Pmx 100 1 gm In Dextrose/Water 1 100ml.bag @ 100 mls/hr IVPB ONCE ONE Rx#: [id number] Sodium Chloride 0.9% 1, 2400 2400 1300 000 ml @ 125 mls/hr IV . Q8H [facility] Rx#:[id number] Output: Urine 1620 3275 1750 Other: Voiding Method Urinal Urinal Urinal # Voids 1 - Exam GENERAL EXAM: Alert, pleasant, 32-year-old -Green[place]ic male comfortable in no apparent distress. HEAD: Normocephalic/atraumatic. EYES: Normal reaction of pupils, equal size. Conjunctiva pink, sclera white. NOSE: Clear with pink turbinates. THROAT: No erythema or exudates. NECK: No masses, no JVD, no thyroid enlargement, no adenopathy. CHEST: No chest wall deformity. Symmetrical expansion. LUNGS: Equal air entry with no crackles, wheeze, rhonchi or dullness. CVS: Regular rate and rhythm, normal S1 and S2, no gallops, no murmurs, no rubs ABDOMEN: Soft, nontender. No hepatosplenomegaly, normal bowel sounds, no guarding or rigidity. EXTREMITIES: No clubbing, no edema, no cyanosis, 2+ pulses and upper and lower extremities. MUSCULOSKELETAL: Muscle strength and tone normal. SPINE: No scoliosis or deformity SKIN: No rashes CENTRAL NERVOUS SYSTEM: Alert and oriented -3. No focal deficits, tone is normal in all 4 extremities. PSYCHIATRIC: Alert and oriented -3. Appropriate affect. Intact judgment and insight. - Labs CBC & Chem 7: 04/19/18 05:13 04/19/18 11:18 Labs: Abnormal Lab Results - Last 24 Hours (Table) 04/18/18 04/18/18 04/19/18 Range/Units 16:05 21:06 00:16 RBC (4.30-5.90) m/uL Hgb (13.0-17.5) gm/dL Hct (39.0-53.0) % MCHC (31.0-37.0) g/dL Potassium 6.7 H* 6.1 H (3.5-5.1) mmol/L Chloride 116 H 117 H (98-107) mmol/L Carbon Dioxide 19 L (22-30) mmol/L BUN 70 H 62 H (9-20) mg/dL Creatinine 7.80 H* 6.30 H* (0.66-1.25) mg/dL Glucose (74-99) mg/dL POC Glucose (mg/dL) 68 L (75-99) mg/dL 04/19/18 04/19/18 04/19/18 Range/Units 05:13 05:13 08:43 RBC 3.24 L (4.30-5.90) m/uL Hgb 8.8 L (13.0-17.5) gm/dL Hct 28.9 L (39.0-53.0) % MCHC 30.4 L (31.0-37.0) g/dL Potassium 6.0 H (3.5-5.1) mmol/L Chloride 115 H (98-107) mmol/L Carbon Dioxide 20 L (22-30) mmol/L BUN 51 H (9-20) mg/dL Creatinine 4.10 H (0.66-1.25) mg/dL Glucose (74-99) mg/dL POC Glucose (mg/dL) 224 H (75-99) mg/dL 04/19/18 04/19/18 04/19/18 Range/Units 11:18 12:19 12:21 RBC (4.30-5.90) m/uL Hgb (13.0-17.5) gm/dL Hct (39.0-53.0) % MCHC (31.0-37.0) g/dL Potassium 5.4 H (3.5-5.1) mmol/L Chloride 113 H (98-107) mmol/L Carbon Dioxide (22-30) mmol/L BUN 44 H (9-20) mg/dL Creatinine 3.20 H (0.66-1.25) mg/dL Glucose 66 L (74-99) mg/dL POC Glucose (mg/dL) 55 L 61 L (75-99) mg/dL Microbiology - Last 24 Hours (Table) 04/18/18 11:05 Urine Culture - Preliminary Urine,Clean Catch Assessment and Plan Plan: #1. Acute kidney injury, related to significant dehydration and hypovolemia. Kidney function continues to improve. Patient is responding nicely to fluid resuscitation. #2. Hyperkalemia, hyperchloremia, related to the above, improved #3. Hypertension #4. Nausea, vomiting, diarrhea, excessive sweating in hot weather, recovered #5. Non-anion gap metabolic acidosis related to acute kidney injury, recovered #6. Mild leukocytosis, possibly reactive #7. Diabetes mellitus type II, he is on Januvia, metformin, and Trulicity insulin #8. Exercise-induced asthma, stable #9. Hypertension #10. Lifetime nonsmoker Plan Transfer the patient out of the intensive care unit. Continue IV fluids. Repeat electrodes for tomorrow. The food and beverage checker is on the case. We'll follow.
[2018-04-19 16:41] LABS: Iron Saturation 32.42 (15.00-50.00)
[2018-04-19 16:58] LABS: Glucose,Whole Blood 73 mg/dL (75-99)
--- NOTE | 2018-04-19 20:20 | PN ---
PROGRESS NOTE DATE OF SERVICE: 04/19/2018 PRESENT COMPLAINT: Weak, tired. INTERVAL HISTORY: This pleasant gentleman presented with severe nausea, vomiting, diarrhea with severe renal failure, was in the ICU, hyperkalemic, severely acidotic, feeling better today, did eat light diet, making good urine. The patient did get some Kayexalate earlier today, did drop his blood sugar, has been out of bed. REVIEW OF SYSTEMS: Done for constitutional, cardiovascular, GI, pulmonary; relevant findings as above. CURRENT MEDICATIONS: Reviewed that include: 1. P.o. sodium bicarb and. 2. Normal saline at 125 mL/hour. EXAMINATION: Temperature 97.9, pulse 86, respirations 22, blood pressure 125/67, pulse ox 100% on room air. GENERAL APPEARANCE: Lying in bed, more awake, perky. EYES: Pupils equal. Conjunctivae normal. HEENT: External appearance of nose and ears normal. Oral cavity normal. NECK: JVD not raised. Mass not palpable. RESPIRATORY: Effort normal. LUNGS: Decreased breath sounds. CARDIOVASCULAR: First and second sounds normal. No edema. ABDOMEN: Soft, nontender. Liver and spleen not palpable. PSYCHIATRY: Alert and oriented x3. Mood and affect were normal. INVESTIGATIONS: Potassium 5.4, BUN 44, creatinine 3.20. Accu-Cheks 66, 61, 87. ASSESSMENT: 1. Acute severe renal failure, prerenal from diarrhea with some improvement. 2. Diabetes mellitus type 2, chronically hypoglycemic, uncontrolled from low sugars. 3. Mild intermittent asthma. 4. Acute metabolic acidosis from renal failure. 5. Severe hypokalemia, improving. 6. Hypoglycemia from poor oral intake. PLAN: Continue with IV fluids, sodium bicarb. The patient is on a low potassium diet. The patient will be moved out of ICU. Care was discussed with the patient. Encouraged to ambulate. MMODL / IJN: [id number] /
[2018-04-19 21:01] LABS: Glucose,Whole Blood 85 mg/dL (75-99)
[2018-04-20 02:49] LABS: Glucose,Whole Blood 83 mg/dL (75-99)
[2018-04-20] MEDS: SODIUM CHLORIDE 0.9% 1,000 ML IV SCH ×3 (05:16→22:26)
[2018-04-20 07:24] LABS: Glucose,Whole Blood 89 mg/dL (75-99)
[2018-04-20] MEDS: INSULIN ASPART 100 UNIT/ML 1 ML 10 ML VIAL SQ SCH ×3 (08:24→18:13)
[2018-04-20] MEDS: SODIUM BICARBONATE TAB 650 MG TAB PO SCH ×2 (08:26→20:34)
[2018-04-20] MEDS: ENOXAPARIN 40 MG/0.4 ML SYRINGE SQ SCH (08:26)
[2018-04-20 08:33] LABS: Basophils % (A) 0 %; Eosinophils # (A) 0.3 k/uL (0-0.7); Eosinophils % (A) 5 %; HGB 8.7 gm/dL (13.0-17.5); Hypochromasia Slight; Lymphocytes # (A) 2.8 k/uL (1.0-4.8); Lymphocytes % (A) 46 %; Mean Platelet Volume 7.6; Monocytes # (A) 0.4 k/uL (0-1.0); Monocytes % (A) 6 %; Neutrophils # (A) 2.4 k/uL (1.3-7.7); Neutrophils % (A) 39 %; Platelet Count 198 k/uL (150-450); RBC 3.22 m/uL (4.30-5.90); RDW 13.6 % (11.5-15.5); WBC 6.1 k/uL (3.8-10.6)
[2018-04-20 08:45] LABS: Calcium 8.6 mg/dL (8.4-10.2); Magnesium 1.5 mg/dL (1.6-2.3); Phosphorus 3.2 mg/dL (2.5-4.5)
[2018-04-20 09:03] LABS: Potassium 6.2 mmol/L (3.5-5.1)
[2018-04-20] MEDS ORDERED: INSULIN REGULAR 100 UNIT/ML VIAL IV ONE ×2 (09:27→18:48)
[2018-04-20] MEDS ORDERED: DEXTROSE 50%-WATER 50 ML SYRINGE IVP STA ×2 (09:28→18:49)
[2018-04-20] MEDS ORDERED: SODIUM POLYSTYRENE SULFONATE 15 GM/60 ML BOTTLE PO STA (09:31)
--- NOTE | 2018-04-20 11:29 | P.PN ---
Subjective Progress Note Date: 04/20/18 Mr. Bullock is a 32-year-old -Macedonian male patient of Dr. Zamora, who presented to the emergency department on 04/17/2018 at 1940 with complaints of lightheadedness, vomiting, diarrhea, weakness, fatigue. Patient went to the [place] with some friends on Saturday04/13/2018, and he had several alcoholic drinks, but denies being overtly intoxicated. Day on Saturday on 2017 patient felt lightheaded, and he saw bright lights. She did a lot of walking that day in the hot weather, and was perspiring quite a bit. He noticed his urine output was diminished. 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 By that time she was feeling worse, more fatigued, lightheaded, and started throwing up violently, in addition to 2 or 3 episodes of watery diarrhea. One other person in the group had the stomach upset, but no nausea vomiting or diarrhea. Patient went to the urgent care clinic, and was given some Zofran, and subsequently directed to the emergency department for further evaluation and treatment. Medical history is positive for diabetes mellitus type 2, patient was diagnosed at age 15, and his current medications for diabetes include Januvia, metformin and Trulicity. Other history includes asthma, patient is on Proair, usually prior to exercise, history of hypertension on Zestoretic. Lab work in the emergency department revealed WBC of 12.4, hemoglobin of 13.2, potassium was 6.6, BUN was 85, creatinine was 12.4, CO2 17, chloride was 110, amylase was 227, and lipase was 228. Negative chest x-ray, abdominal x-ray was negative. EKG showed normal sinus rhythm. Patient was hypotensive with a blood pressure 74/46, he was given a total of 3,5 L IV fluid boluses of 0.9 normal saline, his hyperkalemia and metabolic acidosis was treated with 1 amp of sodium bicarb, regular insulin, 50% dextrose, and calcium chloride, and on today's labs his potassium is 5.4, chloride is 111, CO2 is 15, BUN 79, and creatinine is 11.1. Nephrology been consulted, patient's blood pressure has improved, currently at 101/46, patient has been afebrile, room air pulse ox is 97%. No further episodes of vomiting, patient is actually tolerating a consistent carb diet, no further diarrhea, he is awake alert, and his mentation is appropriate. Denies any abdominal pain, lung sounds are clear, denies any distress. On today's evaluation of 04/19/2018 the patient is looking well and he has no specific complaints. His renal function continues to improve. Ultrasound the kidneys showed no evidence of any hydronephrosis. UA was negative also other than some casts. The patient's creatinine is improving and creatinine is down to 3.2. Potassium level is down to 5.4 did not that overnight the patient had some issues with hyperkalemia and he was given the potassium cocktail to which she responded. He is tolerating his diet. No nausea. No vomiting. No abdominal pain. Is producing adequate amount of urine output. His net fluid balance is +1.4 L 4 yesterday. Otherwise is urinating adequately for now. Nephrology is on the case. The patient on Lovenox for DVT prophylaxis. He is also on normal saline at the rate of 125 mL an hour. On 04/20/2018 the patient is resting comfortably in bed and has no complaints. Potassium level is at 6.2. Creatinine is down to 1.8. Nephrology is aware and hyperkalemia will be treated. Clinically is doing well he has no specific complaints. Magnesium level is also at 1.5. Objective - Vital Signs Vital signs: Vital Signs Temp 98.3 F 04/20/18 07:00 Pulse 60 04/20/18 07:00 Resp 20 04/20/18 07:00 BP 96/51 04/20/18 07:00 Pulse Ox 99 04/20/18 07:00 Intake & Output 04/19/18 04/20/18 04/20/18 18:59 06:59 18:59 Intake Total 1650 200 Output Total 1750 Balance -100 200 Weight 96.2 kg Intake: IV 1650 Magnesium Sulfate-D5w Pmx 100 1 gm In Dextrose/Water 1 100ml.bag @ 100 mls/hr IVPB ONCE ONE Rx#: [id number] Sodium Chloride 0.9% 1, 1550 000 ml @ 125 mls/hr IV . Q8H [facility] Rx#:[id number] Oral 200 Output: Urine 1750 Other: Voiding Method Urinal Urinal # Voids 1 - Exam GENERAL EXAM: Alert, pleasant, 32-year-old -Maced[place] male comfortable in no apparent distress. HEAD: Normocephalic/atraumatic. EYES: Normal reaction of pupils, equal size. Conjunctiva pink, sclera white. NOSE: Clear with pink turbinates. THROAT: No erythema or exudates. NECK: No masses, no JVD, no thyroid enlargement, no adenopathy. CHEST: No chest wall deformity. Symmetrical expansion. LUNGS: Equal air entry with no crackles, wheeze, rhonchi or dullness. CVS: Regular rate and rhythm, normal S1 and S2, no gallops, no murmurs, no rubs ABDOMEN: Soft, nontender. No hepatosplenomegaly, normal bowel sounds, no guarding or rigidity. EXTREMITIES: No clubbing, no edema, no cyanosis, 2+ pulses and upper and lower extremities. MUSCULOSKELETAL: Muscle strength and tone normal. SPINE: No scoliosis or deformity SKIN: No rashes CENTRAL NERVOUS SYSTEM: Alert and oriented -3. No focal deficits, tone is normal in all 4 extremities. PSYCHIATRIC: Alert and oriented -3. Appropriate affect. Intact judgment and insight. - Labs CBC & Chem 7: 04/20/18 08:05 04/20/18 08:05 Labs: Abnormal Lab Results - Last 24 Hours (Table) 04/19/18 04/19/18 04/19/18 Range/Units 11:18 12:19 12:21 RBC (4.30-5.90) m/uL Hgb (13.0-17.5) gm/dL Hct (39.0-53.0) % Potassium 5.4 H (3.5-5.1) mmol/L Chloride 113 H (98-107) mmol/L BUN 44 H (9-20) mg/dL Creatinine 3.20 H (0.66-1.25) mg/dL Glucose 66 L (74-99) mg/dL POC Glucose (mg/dL) 55 L 61 L (75-99) mg/dL Magnesium (1.6-2.3) mg/dL 04/19/18 04/20/18 04/20/18 Range/Units 16:57 08:05 08:05 RBC 3.22 L (4.30-5.90) m/uL Hgb 8.7 L (13.0-17.5) gm/dL Hct 28.0 L (39.0-53.0) % Potassium 6.2 H* (3.5-5.1) mmol/L Chloride 113 H (98-107) mmol/L BUN 26 H (9-20) mg/dL Creatinine 1.87 H (0.66-1.25) mg/dL Glucose (74-99) mg/dL POC Glucose (mg/dL) 73 L (75-99) mg/dL Magnesium 1.5 L (1.6-2.3) mg/dL Microbiology - Last 24 Hours (Table) 04/18/18 11:05 Urine Culture - Final Urine,Clean Catch Assessment and Plan Plan: #1. Acute kidney injury, related to significant dehydration and hypovolemia. Kidney function continues to improve creatinine is down to 1.8 #2. Hyperkalemia, hyperchloremia, related to the above #3. Hypertension #4. Nausea, vomiting, diarrhea, excessive sweating in hot weather, recovered #5. Non-anion gap metabolic acidosis related to acute kidney injury, recovered #6. Mild leukocytosis, possibly reactive #7. Diabetes mellitus type II, he is on Januvia, metformin, and Trulicity insulin #8. Exercise-induced asthma, stable #9. Hypertension #10. Lifetime nonsmoker #11 anemia Plan Far just to follow-up on the renal function. Treat hyperkalemia. Fluids. Ambulation and mobility. We'll sign off the case.
--- NOTE | 2018-04-20 11:52 | P.PN ---
Subjective Patient is seen in follow-up for acute kidney injury. Creatinine was greater than 12 on admission and is down to 1.87 today. Potassium remains elevated. He is nonoliguric. Maintained on normal saline at 125 mL an hour. Oral intake is good. No nausea vomiting or diarrhea. Vital signs are stable. General: The patient appeared well nourished and normally developed. HEENT: Head exam is unremarkable. Neck is without jugular venous distension. LUNGS: Lungs are clear to auscultation and percussion. Breath sounds decreased. HEART: Rate and Rhythm are regular. First and second heart sounds normal. No murmurs, rubs or gallops. ABDOMEN: Abdominal exam reveals normal bowel sounds. Non-tender and non- distended. No evidence of peritonitis. EXTREMITITES: No clubbing, cyanosis, or edema. Objective - Vital Signs Vital signs: Vital Signs Temp 98.3 F 04/20/18 07:00 Pulse 60 04/20/18 07:00 Resp 20 04/20/18 07:00 BP 96/51 04/20/18 07:00 Pulse Ox 99 04/20/18 07:00 Intake & Output 04/19/18 04/20/18 04/20/18 18:59 06:59 18:59 Intake Total 1650 200 Output Total 1750 Balance -100 200 Weight 96.2 kg Intake: IV 1650 Magnesium Sulfate-D5w Pmx 100 1 gm In Dextrose/Water 1 100ml.bag @ 100 mls/hr IVPB ONCE ONE Rx#: [id number] Sodium Chloride 0.9% 1, 1550 000 ml @ 125 mls/hr IV . Q8H [facility] Rx#:[id number] Oral 200 Output: Urine 1750 Other: Voiding Method Urinal Urinal # Voids 1 - Labs CBC & Chem 7: 04/20/18 08:05 04/20/18 08:05 Labs: Abnormal Lab Results - Last 24 Hours (Table) 04/19/18 04/19/18 04/19/18 Range/Units 11:18 12:19 12:21 RBC (4.30-5.90) m/uL Hgb (13.0-17.5) gm/dL Hct (39.0-53.0) % Potassium 5.4 H (3.5-5.1) mmol/L Chloride 113 H (98-107) mmol/L BUN 44 H (9-20) mg/dL Creatinine 3.20 H (0.66-1.25) mg/dL Glucose 66 L (74-99) mg/dL POC Glucose (mg/dL) 55 L 61 L (75-99) mg/dL Magnesium (1.6-2.3) mg/dL 04/19/18 04/20/18 04/20/18 Range/Units 16:57 08:05 08:05 RBC 3.22 L (4.30-5.90) m/uL Hgb 8.7 L (13.0-17.5) gm/dL Hct 28.0 L (39.0-53.0) % Potassium 6.2 H* (3.5-5.1) mmol/L Chloride 113 H (98-107) mmol/L BUN 26 H (9-20) mg/dL Creatinine 1.87 H (0.66-1.25) mg/dL Glucose (74-99) mg/dL POC Glucose (mg/dL) 73 L (75-99) mg/dL Magnesium 1.5 L (1.6-2.3) mg/dL Microbiology - Last 24 Hours (Table) 04/18/18 11:05 Urine Culture - Final Urine,Clean Catch Assessment and Plan Plan: Assessment: 1. Nonoliguric acute kidney injury mostly prerenal improving with IV hydration. Creatinine was greater than 12 on admission and is down to 1.87 today. 2. Hyperkalemia secondary to acute kidney injury and metabolic acidosis. 3. Anemia. Iron replete. 4. Metabolic acidosis secondary to IV fluids and acute kidney injury. 5. Diabetes mellitus. 6. Hypomagnesemia being replaced. Plan: Continue normal saline at 125 mL an hour. Patient received insulin and D50 along with Kayexalate this morning. I will give him 20 mg of IV Lasix once today. Maintain low potassium diet. Recheck potassium level this evening. Maintain oral sodium bicarbonate. Replace magnesium. 2 g IV today.
[2018-04-20] MEDS ORDERED: FUROSEMIDE 10 MG/ML 2 ML VIAL IV ONE ×2 (12:00→18:49)
[2018-04-20 12:06] LABS: Glucose,Whole Blood 48 mg/dL (75-99)
[2018-04-20 12:07] LABS: Glucose,Whole Blood 75 mg/dL (75-99)
[2018-04-20 17:12] LABS: Glucose,Whole Blood 78 mg/dL (75-99)
[2018-04-20 21:01] LABS: Glucose,Whole Blood 148 mg/dL (75-99)
[2018-04-21 00:07] LABS: Glucose,Whole Blood 80 mg/dL (75-99)
[2018-04-21] MEDS: INSULIN ASPART 100 UNIT/ML 1 ML 10 ML VIAL SQ SCH ×5 (02:26→21:24)
[2018-04-21 02:46] LABS: Glucose,Whole Blood 120 mg/dL (75-99)
[2018-04-21] MEDS: SODIUM CHLORIDE 0.9% 1,000 ML IV SCH ×3 (05:33→20:31)
[2018-04-21 07:46] LABS: Glucose,Whole Blood 86 mg/dL (75-99)
[2018-04-21] MEDS: ENOXAPARIN 40 MG/0.4 ML SYRINGE SQ SCH (07:51)
[2018-04-21] MEDS: SODIUM BICARBONATE TAB 650 MG TAB PO SCH ×2 (07:51→20:31)
[2018-04-21 09:34] LABS: Calcium 8.6 mg/dL (8.4-10.2); Magnesium 1.1 mg/dL (1.6-2.3)
--- NOTE | 2018-04-21 10:59 | P.PN ---
Subjective Patient is seen in follow-up for acute kidney injury. Creatinine was greater than 12 on admission and is down to 1.6 today. Potassium is better. He is nonoliguric. Maintained on normal saline at 125 mL an hour. Oral intake is good. No nausea vomiting or diarrhea. Vital signs are stable. General: The patient appeared well nourished and normally developed. HEENT: Head exam is unremarkable. Neck is without jugular venous distension. LUNGS: Lungs are clear to auscultation and percussion. Breath sounds decreased. HEART: Rate and Rhythm are regular. First and second heart sounds normal. No murmurs, rubs or gallops. ABDOMEN: Abdominal exam reveals normal bowel sounds. Non-tender and non- distended. No evidence of peritonitis. EXTREMITITES: No clubbing, cyanosis, or edema. Objective - Vital Signs Vital signs: Vital Signs Temp 97.8 F 04/21/18 07:20 Pulse 60 04/21/18 07:20 Resp 18 04/21/18 07:20 BP 114/72 04/21/18 07:20 Pulse Ox 98 04/21/18 07:20 Intake & Output 04/20/18 04/21/18 04/21/18 18:59 06:59 18:59 Intake Total 1200 Balance 1200 Intake: IV 1000 Sodium Chloride 0.9% 1, 1000 000 ml @ 125 mls/hr IV . Q8H [facility] Rx#:[id number] Oral 200 Other: Voiding Method Toilet # Voids 3 - Labs CBC & Chem 7: 04/20/18 08:05 04/21/18 08:15 Labs: Abnormal Lab Results - Last 24 Hours (Table) 04/20/18 04/20/18 04/20/18 Range/Units 11:46 17:30 20:56 Potassium 6.0 H (3.5-5.1) mmol/L Chloride (98-107) mmol/L Creatinine (0.66-1.25) mg/dL Glucose (74-99) mg/dL POC Glucose (mg/dL) 48 L 148 H (75-99) mg/dL Magnesium (1.6-2.3) mg/dL 04/21/18 04/21/18 Range/Units 02:44 08:15 Potassium (3.5-5.1) mmol/L Chloride 109 H (98-107) mmol/L Creatinine 1.60 H (0.66-1.25) mg/dL Glucose 134 H (74-99) mg/dL POC Glucose (mg/dL) 120 H (75-99) mg/dL Magnesium 1.1 L (1.6-2.3) mg/dL Assessment and Plan Plan: Assessment: 1. Nonoliguric acute kidney injury mostly prerenal improving with IV hydration. Creatinine was greater than 12 on admission and is down to 1.6 today. 2. Hyperkalemia secondary to acute kidney injury and metabolic acidosis. Improved. 3. Anemia. Iron replete. 4. Metabolic acidosis secondary to IV fluids and acute kidney injury. Improved. 5. Diabetes mellitus. 6. Hypomagnesemia being replaced. Plan: Continue normal saline at 125 mL an hour. Maintain low potassium diet. Maintain oral sodium bicarbonate. Replace magnesium. 3 g IV today. Add oral magnesium supplementation. His potassium rises further, I will add low-dose diuretic.
[2018-04-21] MEDS: MAGNESIUM SULFATE-D5W PMX 1 GM in DEXTROSE/WATER 1 100ML.BAG IVPB SCH ×3 (11:15→20:31)
[2018-04-21] MEDS: MAGNESIUM OXIDE 400 MG TAB PO SCH (11:16)
[2018-04-21 11:55] LABS: Glucose,Whole Blood 84 mg/dL (75-99)
--- NOTE | 2018-04-21 14:58 | PN ---
PROGRESS NOTE DATE OF SERVICE: 04/20/2018 PRESENTING COMPLAINT: Acute renal failure. INTERVAL HISTORY: This patient was seen by me yesterday on 04/20. Does move his eyes. Admitted with acute severe renal failure following nausea, vomiting, diarrhea. Patient is a diabetic. Feels a bit better. Tolerating a diet. Nausea, vomiting is actually better. IV fluids has been cut back. REVIEW OF SYSTEMS: Done for constitutional, cardiovascular, GI, pulmonary: relevant findings as above. CURRENT MEDICATIONS: Reviewed that include IV fluids at 1:25 am an hour oral bicarbonate. PHYSICAL EXAMINATION: Temperature 97.9, pulse 57, respirations 18, blood pressure 128/77, pulse ox 100% on room air. GENERAL APPEARANCE: Lying in bed, awake. EYES: Pupils equal, conjunctivae normal. HEENT: External appearance of nose and ears are normal, oral cavity normal. NECK: JVD not raised. Mass not palpable. RESPIRATORY: Effort normal. LUNGS: Decreased breath sounds. CARDIOVASCULAR: First and second sounds normal, no edema. ABDOMEN: Soft, nontender. Liver and spleen not palpable. PSYCHIATRY: Alert and oriented x3. Mood and affect normal. INVESTIGATIONS: White count 6.1, hemoglobin 8.7, potassium 6.2, BUN 26, creatinine 1.87. ASSESSMENT: 1. Acute severe renal failure, prerenal from diarrhea with some improvement. 2. Diabetes mellitus type 2, chronically on hypoglycemic, uncontrolled with low sugars. 3. Mild intermittent asthma. 4. Acute metabolic acidosis from renal failure. 5. Hyperkalemia, severe. 6. Hypoglycemia from oral intake improving. PLAN: Patient to continue on IV fluids, sodium bicarb. Patient is on a low-potassium diet. Patient did get some dextrose and 1 dose of Lasix. Also got some Kayexalate and insulin. Potassium was to be repeated late in the evening. Care was discussed with the patient. MMODL / IJN: [id number] /
--- NOTE | 2018-04-21 15:03 | CDI ---
Last Revision, September 2017 Documentation Clarification Form Date: 04/21/18 1501 From: Augusta Hoffman RN, CCDS Admit Date: 04/17/2018 9:04:00 PM Patient Name: Fredo Luna Visit Number: [id number] ATTENTION: The Clinical Documentation Specialists (CDI) and [facility] Coding Staff appreciate your assistance in clarifying documentation. Please respond to the clarification below the line at the bottom and electronically sign. The CDI & [facility] Coding staff will review the response and follow-up if needed. Please note: Queries are made part of the Legal Health Record. If you have any questions, please contact the author of this message via ITS. Dr. Teodoro Vega A diagnosis of anemia lacks specificity to accurately reflect your patients severity of condition and clarification is needed. History/Risk Factors: SANAM, DM, Asthma, DM, HTN Clinical indicators: 04/21 Nephro: "Anemia: Iron replete" 04/20 Pulmonary: "anemia" Hemoglobin: 13.2/9.5/8.8/8.7 Hematocrit: 43.3/30.7/28.9/28 Treatment: Lab monitoring In order to capture the severity of condition, please clarify the type of anemia and etiology if known: Chronic blood loss anemia Iron deficiency anemia Drug induced anemia Nutritional anemia Anemia of chronic disease Unable to determine Other, please specify Please continue to document in your progress notes and discharge summary in order to capture severity of illness and risk of mortality. Include clinical findings that support your diagnosis. normocytic anemia - unable to determine MTDD
--- NOTE | 2018-04-21 16:12 | P.PN ---
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 this is the first day i am taking care of the pt on 04/21 This is a pleasant 52 years old male with past medical history of diabetes mellitus on medication. Who presents because of diarrhea, nausea vomiting and lightheadedness, associated with hypotension on admission with blood pressure of 74/46. In the ED his WBC were elevated at 12.4 K, hemoglobin 13.2. Potassium was 6.6 which is elevated. BUN was 85 and creatinine 12.4. Lipase was 228. With negative chest x-ray, abdominal x-ray, EKG showing normal sinus rhythm. Patient was been evaluated by pulmonary/story reader and battery checker. His been treated with IV fluids and other medication to treat his electrolyte abnormality Objective - Vital Signs Vital signs: Vital Signs Temp 98.1 F 04/21/18 13:33 Pulse 68 04/21/18 13:33 Resp 18 04/21/18 13:33 BP 126/70 04/21/18 13:33 Pulse Ox 99 04/21/18 13:33 Intake & Output 04/20/18 04/21/18 04/21/18 18:59 06:59 18:59 Intake Total 1200 Balance 1200 Intake: IV 1000 Sodium Chloride 0.9% 1, 1000 000 ml @ 125 mls/hr IV . Q8H [facility] Rx#:[id number] Oral 200 Other: Voiding Method Toilet # Voids 3 - Exam GENERAL: The patient is alert and oriented x3, not in any acute distress. Well developed, well nourished. HEENT: Pupils are round and equally reacting to light. EOMI. No scleral icterus. No conjunctival pallor. Normocephalic, atraumatic. No pharyngeal erythema. No thyromegaly. CARDIOVASCULAR: S1 and S2 present. No murmurs, rubs, or gallops. PULMONARY: Chest is clear to auscultation, no wheezing or crackles. ABDOMEN: Soft, nontender, nondistended, normoactive bowel sounds. No palpable organomegaly. MUSCULOSKELETAL: No joint swelling or deformity. EXTREMITIES: No cyanosis, clubbing, or pedal edema. NEUROLOGICAL: Gross neurological examination did not reveal any focal deficits. SKIN: No rashes. - Labs CBC & Chem 7: 04/20/18 08:05 04/21/18 08:15 Labs: Abnormal Lab Results - Last 24 Hours (Table) 04/20/18 04/20/18 04/21/18 Range/Units 17:30 20:56 02:44 Potassium 6.0 H (3.5-5.1) mmol/L Chloride (98-107) mmol/L Creatinine (0.66-1.25) mg/dL Glucose (74-99) mg/dL POC Glucose (mg/dL) 148 H 120 H (75-99) mg/dL Magnesium (1.6-2.3) mg/dL 04/21/18 Range/Units 08:15 Potassium (3.5-5.1) mmol/L Chloride 109 H (98-107) mmol/L Creatinine 1.60 H (0.66-1.25) mg/dL Glucose 134 H (74-99) mg/dL POC Glucose (mg/dL) (75-99) mg/dL Magnesium 1.1 L (1.6-2.3) mg/dL Assessment and Plan Plan: Assessment: 1. Nonoliguric acute kidney injury mostly prerenal improving with IV hydration. Creatinine was greater than 12 on admission and is down to 1.6 today. 2. Hyperkalemia secondary to acute kidney injury and metabolic acidosis. Improved. 3. Anemia. Iron replete. 4. Metabolic acidosis secondary to IV fluids and acute kidney injury. Improved. 5. Diabetes mellitus. 6. Hypomagnesemia being replaced. Plan: Continue normal saline at 125 mL an hour. Maintain low potassium diet. Maintain oral sodium bicarbonate. Replace magnesium. Add oral magnesium supplementation. His home medication for diabetes include Januvia, metformin and Trulicity which are on hold for high creatinine. Pulmonary/story reader, battery checker are following the patient. Continue with normal saline at 200 mL per hour DVT prophylaxis on Lovenox PT/OT: Pending
[2018-04-21 17:18] LABS: Glucose,Whole Blood 97 mg/dL (75-99)
[2018-04-21 21:03] LABS: Glucose,Whole Blood 79 mg/dL (75-99)
[2018-04-21 22:49] LABS: Basophils % (A) 1 %; Eosinophils # (A) 0.4 k/uL (0-0.7); Eosinophils % (A) 5 %; HCT 30.7 % (39.0-53.0); HGB 9.6 gm/dL (13.0-17.5); Hypochromasia Slight; Lymphocytes # (A) 3.5 k/uL (1.0-4.8); Lymphocytes % (A) 46 %; MCH 27.1 pg (25.0-35.0); MCHC 31.2 g/dL (31.0-37.0); MCV 86.9 fL (80.0-100.0); Mean Platelet Volume 7.3; Monocytes # (A) 0.5 k/uL (0-1.0); Monocytes % (A) 7 %; Neutrophils # (A) 2.9 k/uL (1.3-7.7); Neutrophils % (A) 38 %; Platelet Count 214 k/uL (150-450); RBC 3.53 m/uL (4.30-5.90); RDW 13.1 % (11.5-15.5); WBC 7.5 k/uL (3.8-10.6)
[2018-04-21 22:50] LABS: Calcium 8.8 mg/dL (8.4-10.2)
[2018-04-22 02:22] LABS: Glucose,Whole Blood 82 mg/dL (75-99)
[2018-04-22] MEDS: SODIUM CHLORIDE 0.9% 1,000 ML IV SCH (05:17)
[2018-04-22] MEDS: INSULIN ASPART 100 UNIT/ML 1 ML 10 ML VIAL SQ SCH (07:29)
[2018-04-22] MEDS: MAGNESIUM OXIDE 400 MG TAB PO SCH (07:30)
[2018-04-22] MEDS: ENOXAPARIN 40 MG/0.4 ML SYRINGE SQ SCH (07:30)
[2018-04-22] MEDS: SODIUM BICARBONATE TAB 650 MG TAB PO SCH (07:30)
[2018-04-22 07:32] LABS: Glucose,Whole Blood 78 mg/dL (75-99)
[2018-04-22 08:07] VITALS: BP 134/86; PULSE 58; RESP 18; TEMP 98.1
[2018-04-22 10:20] LABS: Calcium 8.9 mg/dL (8.4-10.2); Magnesium 1.9 mg/dL (1.6-2.3); Potassium 5.1 mmol/L (3.5-5.1)
--- NOTE | 2018-04-22 10:55 | P.PN ---
Subjective Patient is seen in follow-up for acute kidney injury. Creatinine was greater than 12 on admission and is down to 1.31 today. Potassium is better. He is nonoliguric. Maintained on normal saline at 50 mL an hour. Oral intake is good. No nausea vomiting or diarrhea. Vital signs are stable. General: The patient appeared well nourished and normally developed. HEENT: Head exam is unremarkable. Neck is without jugular venous distension. LUNGS: Lungs are clear to auscultation and percussion. Breath sounds decreased. HEART: Rate and Rhythm are regular. First and second heart sounds normal. No murmurs, rubs or gallops. ABDOMEN: Abdominal exam reveals normal bowel sounds. Non-tender and non- distended. No evidence of peritonitis. EXTREMITITES: No clubbing, cyanosis, or edema. Objective - Vital Signs Vital signs: Vital Signs Temp 98.1 F 04/22/18 07:00 Pulse 58 L 04/22/18 07:00 Resp 18 04/22/18 07:00 BP 134/86 04/22/18 07:00 Pulse Ox 100 04/22/18 07:00 Intake & Output 04/21/18 04/22/18 04/22/18 18:59 06:59 18:59 Other: Voiding Method Toilet # Voids 3 3 - Labs CBC & Chem 7: 04/21/18 22:20 04/22/18 09:18 Labs: Abnormal Lab Results - Last 24 Hours (Table) 04/21/18 04/21/18 04/22/18 Range/Units 22:20 22:20 09:18 RBC 3.53 L (4.30-5.90) m/uL Hgb 9.6 L (13.0-17.5) gm/dL Hct 30.7 L (39.0-53.0) % Chloride 109 H 110 H (98-107) mmol/L Creatinine 1.40 H 1.31 H (0.66-1.25) mg/dL Glucose 118 H (74-99) mg/dL Assessment and Plan Plan: Assessment: 1. Nonoliguric acute kidney injury mostly prerenal improving with IV hydration. Creatinine was greater than 12 on admission and is down to 1.3 today. 2. Hyperkalemia secondary to acute kidney injury and metabolic acidosis. Improved. 3. Anemia. Iron replete. 4. Metabolic acidosis secondary to IV fluids and acute kidney injury. Improved. 5. Diabetes mellitus. 6. Hypomagnesemia being replaced. Improved. Plan: Heplock IVFs. Maintain low potassium diet. Maintain oral sodium bicarbonate. Maintain oral magnesium supplementation. If potassium rises further, I will add low-dose diuretic.
--- NOTE | 2018-04-22 11:15 | P.DS ---
Providers Date of admission: 04/17/18 21:04 Attending physician: Teodoro Vega Consults: 04/17/18 21:04 Consult Physician Stat Consulting Provider: Priyanka Man Consult Reason/Comments: critical care Do you want consulting provider notified?: Already Contacted Consult Physician Stat Consulting Provider: Denisha Huerta Consult Reason/Comments: Acute renal failure, hyperkalemia Do you want consulting provider notified?: Yes Primary care physician: Marcial Zamora Pertinent Studies: Mr. Bullock is a 32-year-old -[place] male patient of Dr. Zamora, who presented to the emergency department on 04/17/2018 complaining of lightheadedness, vomiting, diarrhea, weakness, fatigue. Patient went to the [place] with some friends on Saturday04/13/2018, and he had several alcoholic drinks, but denies being overtly intoxicated. Day on Saturday on 2017 patient felt lightheaded, and he saw bright lights. She did a lot of walking that day in the hot weather, and was perspiring quite a bit. He noticed his urine output was diminished. 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 By that time she was feeling worse, more fatigued, lightheaded, and started throwing up violently, in addition to 2 or 3 episodes of watery diarrhea. One other person in the group had the stomach upset, but no nausea vomiting or diarrhea. Patient went to the urgent care clinic, and was given some Zofran, and subsequently directed to the emergency department for further evaluation and treatment. Medical history is positive for diabetes mellitus type 2, patient was diagnosed at age 15, and his current medications for diabetes include Januvia, metformin and Trulicity. On admission patient was hypotensive with a blood pressure 74/46, and his creatinine was high at 12.4 on admission. Patient was treated with IV fluids and his creatinine came almost close to normal at 1.31 (reference is 0.66 -1.25), patient showed interval improvement and his abdominal pain diarrhea and lightheadedness are all resolved completely. Patient denies any other signs or symptoms. No chest pain, dyspnea. No other changes in bowel or urine habits. No fever. Patient has been evaluated by nephrology while in-house and he cleared him today for discharge. Patient has history of diabetes and is taking metformin 1000 twice a day, Januvia 100 mg daily and Trulicity, all his medication were held on admission. However his sugar was running low between 60s and 100s, eg. it was 48 yesterday. Patient was instructed to hold all his diabetes mellitus medication. He told me he has an appointment with his PCP Dr. Zamora on Saturday rate and he is going to check the need to be added back. Patient's hemoglobin A1c is 5.8. Continue with diabetic diet only for now. Patient was instructed to recheck his sugar, medication and blood test with his PCP including the kidney function when he sees his PCP. Patient verbalized understanding and acceptance line patient is was found stable and can be discharged home however he needs follow-up as an outpatient and he agrees GENERAL: The patient is alert and oriented x3, not in any acute distress. Well developed, well nourished. HEENT: Pupils are round and equally reacting to light. EOMI. No scleral icterus. No conjunctival pallor. Normocephalic, atraumatic. No pharyngeal erythema. No thyromegaly. CARDIOVASCULAR: S1 and S2 present. No murmurs, rubs, or gallops. PULMONARY: Chest is clear to auscultation, no wheezing or crackles. ABDOMEN: Soft, nontender, nondistended, normoactive bowel sounds. No palpable organomegaly. MUSCULOSKELETAL: No joint swelling or deformity. EXTREMITIES: No cyanosis, clubbing, or pedal edema. NEUROLOGICAL: Gross neurological examination did not reveal any focal deficits. SKIN: No rashes. Time spent more than 35 minutes Patient Condition at Discharge: Serious Plan - Discharge Summary Discharge Rx Participant: Yes New Discharge Prescriptions: New Magnesium Oxide [Mag-Ox] 400 mg PO DAILY #5 tab Continue sitaGLIPtin [Januvia] 100 mg PO DAILY Simvastatin [Zocor] 20 mg PO HS Beclomethasone Dipropionate [Qvar 80 mcg] 1 puff INHALATION RT-BID PRN PRN Reason: Shortness Of Breath Lisinopril-Hctz 20-25 mg [Zestoretic 20-25] 1 tab PO DAILY Discontinued metFORMIN HCL 1,000 mg PO BID Dulaglutide [Trulicity] 0.75 mg SQ SALAZAR Discharge Medication List Beclomethasone Dipropionate [Qvar 80 mcg] 1 puff INHALATION RT-BID PRN 04/17/18 [History] Lisinopril-Hctz 20-25 mg [Zestoretic 20-25] 1 tab PO DAILY 04/17/18 [History] Simvastatin [Zocor] 20 mg PO HS 04/17/18 [History] sitaGLIPtin [Januvia] 100 mg PO DAILY 04/17/18 [History] Magnesium Oxide [Mag-Ox] 400 mg PO DAILY #5 tab 04/22/18 [Rx] Follow up Appointment(s)/Referral(s): Marcial Zamora DO [Primary Care Provider] - 1-2 days Activity/Diet/Wound Care/Special Instructions: Diabetic 1800 kcal per day diet Activity as tolerated Discharge Disposition: HOME SELF-CARE
== END 2018-04-22 11:24 | disposition home or self-care (01) | DRG 683 ==
LOC: EC 19:16 → 6ICU 21:04 → 4MS4W 04-19 17:02
PROVIDERS: ADMIT Hospitalist; ATTEND Hospitalist
DX: N17.0 Acute kidney failure with tubular necrosis (principal); E87.2 Acidosis; E11.649 Type 2 diabetes mellitus with hypoglycemia without coma; I95.9 Hypotension, unspecified; E87.8 Other disorders of electrolyte and fluid balance, not elsewhere classified; E83.42 Hypomagnesemia; E87.5 Hyperkalemia; D64.9 Anemia, unspecified; E86.0 Dehydration; E86.1 Hypovolemia; J45.20 Mild intermittent asthma, uncomplicated; I10 Essential (primary) hypertension; D72.829 Elevated white blood cell count, unspecified; Z79.84 Long term (current) use of oral hypoglycemic drugs; Z79.51 Long term (current) use of inhaled steroids; Z79.899 Other long term (current) drug therapy; Z83.3 Family history of diabetes mellitus; Z84.1 Family history of disorders of kidney and ureter
CPT/HCPCS: 36415; 71046; 74018; 76770; 80048; 80053; 80306; 81001; 82150; 82728; 83036; 83540; 83550; 83690; 83735; 84100; 84132; 85025; 87086; 93005; 96361; 96365; 96375; 99291